=== PATIENT | female | born 1985 | race Native Hawaiian/Other Pacific Islander ===

== ENCOUNTER 2021-12-28 12:43 | Emergency (ER) | payer OTHER ==
[~2021-12-28] VITALS: Ht 157.5 cm; Wt 127.0 kg
[~2021-12-28 12:43] MED LIST: LISI20TA11 PO; MOTRIN IB200 MG PO
[2021-12-28 12:50] VITALS: BP 123/87; TEMP 98.5
[2021-12-28 13:37] LABS: PLATELET COUNT 276 K/uL (152-353)
[2021-12-28 13:55] LABS: POTASSIUM 3.8 mmol/L (3.6-5.2); SODIUM 139 mmol/L (136-145)
== END 2021-12-28 14:27 | disposition home or self-care (01) ==
LOC: ED 12:43
PROVIDERS: Emergency Medicine Emergency Medical Services
DX: F11.20 Opioid dependence, uncomplicated (principal); F14.10 Cocaine abuse, uncomplicated
CPT/HCPCS: 80048; 80307; 84484; 85027; 93005; 96374; 96375; 99283; 99284; J2270; J2405